=== PATIENT | female | born 1975 | race Caucasian/White ===

== ENCOUNTER 2022-02-05 14:22 | Outpatient (CLI) | payer OTHER, SELFPAY ==
--- NOTE | 2022-02-05 14:40 | CRLHL7_ITS ---
For Patients: As a result of the Century Cures Act, medical imaging exams and procedure reports are released immediately into your electronic medical record. You may view this report before your referring provider. If you have questions, please contact your health care provider. BILATERAL SCREENING MAMMOGRAM WITH COMPUTER-AIDED DETECTION AND TOMOSYNTHESIS TECHNIQUE: CC and MLO views were obtained. These mammographic images have been obtained using full-field digital technique. These mammographic images were interpreted with the benefit of computer-aided detection. Breast Tomosynthesis was used in this interpretation. COMPARISON FILM: Baseline. FINDINGS: There are scattered areas of fibroglandular density IMPRESSION: There is no radiographic evidence for malignancy. ASSESSMENT: BI-RADS Category 2: Benign RECOMMENDATION: Routine screening mammogram in 1 year. A lay language report of this examination will be provided to the patient. Odilon Castellano M.D. Diagnostic Radiologist [email or web address] Transcribed: 8:09 p.m. SLIME/Dictated by: Odilon Castellano MD @ 02/06/2022 11:47:00 AM (Electronically Signed)
== END 2022-02-05 14:23 | disposition home or self-care (01) ==
PROVIDERS: PCP Physician Assistant Medical; Visit Provider Physician Assistant Medical
DX: Z12.31 Encounter for screening mammogram for malignant neoplasm of breast (principal)
CPT/HCPCS: 77063; 77067

== ENCOUNTER 2022-11-12 09:30 | Outpatient (RCR) | payer OTHER, SELFPAY ==
--- NOTE | 2022-10-11 09:11 | PT.OPE ---
PT [place] Outpatient Eval [facility] Outpatient Eval Start: 10/08/22 07:49 Freq: Status: Active Protocol: Document 10/08/22 07:50 HN (Rec: 10/08/22 13:19 HN [id number]) E-signed By Bianca Robles DPT Physical Therapy Outpatient Evaluation Insurance Information Insurance Name [employer] Insurance Information/Comments [employer] Choice Medical Diagnosis Radiculopathy, cervical region , M54.12 Anesthesia of the skin R20. 0 Referring MD Randall Gatica MD Subjective Subjective Patient is a 47 year old female with left sided UE numbness and tingling with insidious onset, that worsened since June 2022. Patient reports it is intermittent during the day but consistent since June. Patient reports symptoms have worsened, received medrol pack relieved symptoms for a week but decreased once completed, Scheduled to receive steroid injection on Sunday 10/15 Pain characteristics: starts in neck and radiates down to arm to first three fingers, significant sharp pain in deltoid and elbow, sharp pain in cervical spine, left upper trapezius/levator Aggravating factors: bringing arm forward, lying on back, lying on R, writing, lifting arm overhead, lifting/carrying Easing Factors: ibuprofen, shower with heat, medrol pack helped during Prior level of function: independent and unlimited with all ADLs and IADLs Current limitations: turning head, writing, bringing arm in front, reaching down in front , Red flags: denies hx of cancer , recent infection, bowel/ bladder changes Imaging: MRI shows C6/C7 & C5 /C6 disc herniation PMH: unremarkable Social History: 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[employer], 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, 5 kids, enjoys boating, spending time with kids in the summer Pain Comments Current: 0/10 Best: 0/10 Worst: 5/10 at worst 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,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 Preferred Name Cinthia Princess Weight Bearing Status Full Weight Bearing Therapy Limitations/Systems Review Not Limited Objective Other/Pertinent Objective Posture: Shoulder range of motion: Flexion: WNL Abduction: WNL Cervical range of motion: Flexion 40 increased pain Extension: 52 Left rotation: 40 Right rotation: 32 increased numbness and tingling Manual muscle testing: Shoulder flexion: 5/5 L , 5/5 R Shoulder extension: 5/5 L , 5 /5 R Shoulder abduction: 5/5 L , 5 /5 R Shoulder external rotation: 5/ 5 L , 5/5 R Shoulder internal rotation: 5/ 5 L , 5/5 R Elbow flexion: 5/5 L , 5/5 R Elbow extension: 5/5 L , 5/5 R Plum Packer strength R 80 lbs , L 85 lbs Special tests: Spurlings: positive on on L Distraction: no change in symptosm ULNT1: no reproduction of symptoms ULNT2a: no reproduction of symptoms ULNT2b: no reproductions of symptoms Joint mobility: decreased cervical and thoracic mobility Palpation: increased numbness and tingling along left upper trap/levator scapulae Functional Test Performed & Score Neck disability index: deferred will assess next session Assessment Assessment/Impression Patient is a 47 year old with complaints of left sided numbness and tingling. Patient demonstrates impaired impaired cervical range of motion, increased numbness and tingling and pain consistent with cervical radiculopathy. These impairments impact the patients tolerance with turning head, lifting objects, writing, reaching arms in front, and performing ADLs and IADLs. Patient will benefit from skilled physical therapy to address the impairments and activity limitations listed above. Prognostic factors include no comorbidities and chronic nature of symptoms. Primary Functional Limitations tolerance with turning head, lifting objects, writing, reaching arms in front, and performing ADLs and IADLs. Plan of Care Rehabilitation Potential Good Physical Therapy Goals Short term goals ( 5 weeks, ) 1. Patient will report <4/10 pain at worst in order to demonstrate decreased pain and disability related to symptoms 2. Patient will report less than 10 instances of numbness and tingling in left arm during the day to demonstrates decreased pain and disability related to symptoms. FDC goals(10 weeks ) 1. Patient will demonstrate full pain-free cervical range of motion in order to complete ADLs and IADLs with no increase in pain. 2. Patient will demonstrate independence with HEP in order to manage symptoms independently at home. 3. Patient will report <3/10 pain at worst in order to demonstrate decreased pain and disability related to symptoms. 4. Patient will demonstrate 10 improvement in Neck Disability index in order to demonstrate decreased pain and disability related to neck and L UE arm/numbness 5. Patient will tolerate 75% of ADLs and IADLs with no increase in numbness/tingling in order to improve tolerance with daily activities. Coordination/Communication With Referral Source Treatment Plan/Direct Interventions Electrical Stimulation,Ice/ Cold/Vasopneumatic,Joint Mobilization,Manual Therapy, Neuromuscular Re-ed,Self-Care/ Home Management,Therapeutic Activities,Therapeutic Exercises,Traction (Mechanical ) Frequency/Duration 1-2x/week for 8-10 weeks Patient Will Be Discharged From Therapy Completion of LTG(s),Skills Plateau,Independent w/HEP Evaluation Billing Complexity Low Certification Information Physician Comment/Change : Physician NPI Number #
== END 2022-12-21 08:52 | disposition home or self-care (01) ==
PROVIDERS: PCP Physician Assistant Medical; Visit Provider Family Medicine
DX: M54.12 Radiculopathy, cervical region (principal); R20.0 Anesthesia of skin; Z51.89 Encounter for other specified aftercare
CPT/HCPCS: 97012; 97110; 97140; 97161

== ENCOUNTER 2024-04-23 13:50 | Outpatient (CLI) | payer OTHER, SELFPAY ==
[2024-04-26 03:17] LABS: HPV Source Cervix; HPV, High Risk by TMA Not Detected
== END 2024-04-23 13:51 | disposition home or self-care (01) ==
PROVIDERS: PCP Physician Assistant Medical; Visit Provider Physician Assistant Medical
DX: Z11.3 Encounter for screening for infections with a predominantly sexual mode of transmission (principal); Z12.4 Encounter for screening for malignant neoplasm of cervix; Z11.51 Encounter for screening for human papillomavirus (HPV)
CPT/HCPCS: 87491; 87591; 87624; 87625; 88141; 88142

== ENCOUNTER 2024-04-24 09:48 | Outpatient (CLI) | payer OTHER, SELFPAY | END 2024-04-24 09:49 | disposition home or self-care (01) | LOC: NFLDREF 04-28 23:58 | PROVIDERS: PCP Physician Assistant Medical; Referring Provider Physician Assistant Medical; Visit Provider Physician Assistant Medical | DX: R82.90 Unspecified abnormal findings in urine (principal); Z13.6 Encounter for screening for cardiovascular disorders; Z13.29 Encounter for screening for other suspected endocrine disorder; Z13.1 Encounter for screening for diabetes mellitus; Z11.3 Encounter for screening for infections with a predominantly sexual mode of transmission | CPT/HCPCS: 80048; 80061; 84443; 87086 ==

== ENCOUNTER 2024-05-28 12:34 | Emergency (ER) | payer OTHER, SELFPAY ==
[2024-05-28] VITALS (18 sets, daily range): BP systolic 164; BP diastolic 93; PULSE 84–104; RESP 13–32; O2SAT 95–100; BMI 40.4
--- OUTSIDE RECORDS SUMMARY | 2024-05-28 12:36 | XMS_ITS | Continuity of Care Document ---
Author Organization [facility] Address [address] [place] [address] Phone Care Team Providers Care Tapering Machine Operator Name Role Phone Temitope ROCA, PhD, Braulio Unavailable Unavai lable Allergies, Adverse Reactions, Alerts Substance Reaction Status Criticality No Known Allergies Active No Inform ation Medications Medication Instructions Dosage Effective Dates (start - stop) Status Comments No Drug Therapy Prescribed Procedures Procedure Date OFFICE/OUTPATIENT VISIT EST Phone Office/Outpatient Visit,[facility], [facility] 2022 Advance Directives Directive Yes / No Effective Date File Name No Information Encounters Encounter Description Practice Location Reason(s) For Visit Diagnoses Date Provider Providers Copied on Encounter OFFICE/OUTPAT IENT VISIT EST Phone [facility], [address], [place], [place], [id number], [place] tel:[phone] [facility] No Information Temitope Ramsey. [facility], [address] [address], [place], [address], [place]. tel:[phone] Referring Provider: Randall Layne, [facility] [address] [facility], [place], [address]. tel:[phone] Office/Outpat ient Visit,[facility], [facility], [address], [place], [place], [id number], [place] tel:[phone] [facility] Spinal stenosis, cervical region Temitope Ramsey. [facility], [address], [place], [address], [place]. tel:[phone] Referring Provider: Randall Layne, [facility] [address] [place], [address]. tel:[phone] Family History Family Member Type Diagnosis Age At Onset No Information Payers Payer name Insurance type Covered constitution party ID Authoriza tiduncan(s) [employer] [id number] Social History Type Description Quantity Date Captured Comments Sex Female Smoking Status No Information Chief Complaint And Reason For Visit No Information Reason For Referral Reason For Referral No Information History Of Present Illness Encounter Date Complaint History Of Prese nt Illness No Information Functional Status Date Functional Assessmen t No Information Medications Administered Medication Instructions Dosage Effective Dates (start - stop) Status Comments No Drug Therapy Prescribed Instructions Date Instruction Additional Infor mation No Information Assessments Type Assessment Date No Information Patient Care Teams Name Effective Dates (start - stop) Status Members No Information
--- OUTSIDE RECORDS SUMMARY | 2024-05-28 12:36 | XMS_ITS | Clinical Summary ---
Author Organization [facility] Address [facility] [place] [address] Care Team Providers Care General Pediatrician Name Role Phone Tiana Vazquez MD Unavailable [phone] Clinic, No Pcp Or Primary Care Provider Unavaila ble Allergies No known active allergies Medications vitamin-folic acid 1 mg ( RX) tablet/capsuleI ndications:Post state Take 1 tablet by mouth once daily. 100 tablet 0 6 Active docusate (COLACE) 100 mg capsuleIndicati ons: delivery delivered Take 1 capsule by mouth once daily. 100 capsule 0 6 Active oxyCODONE (ROXICODONE) 5 mg immediate release tabletIndicatio ns:Post-op pain Take 1 tablet by mouth every 4 hours if needed for moderate to severe pain not controlled with ibuprofen and acetaminophen. 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 06/24/2018 AMA (advanced maternal age) multigravida 35+, second trimester 06/24/2018 delivery delivered 09/11/2015 Post-op pain 09/11/2015 state 09/11/2015 Immunizations Name Administration Dates Next Due Td (Age >=7 Years) 04/15/2002 Tdap, Unspecified 06/28/2015 Tuberculin (PPD) 08/15/2000 Family History Medical History Relation Name Comments Cancer Brother Hyperlipidemia Father Hypertension Father Relation Name Status Comments Brother Father Social History Tobacco Use Types Packs/Day Years Used Date Smoking Tobacco: Never Smokeless Tobacco: Never Alcohol Use Standard Drinks/Week Comments No 0 (1 standard drink = 0.6 oz pur e alcohol) Comments No Sex and Gender Information Value Date Recorded Sex Assigned at Not on file Legal Sex Female 5:31 AM TELLER COORDINATOR Gender Identity Not on file Sexual Orientation Not on file Obstetrics History Para Term AB IAB SAB Ectopic Multiple Livin g Live Births 6 5 5 0 1 0 0 0 0 5 4 Date Outcome GA Total Labor Labor//3rd Weight Sex Type Anes PTL Christina A1 A5 Name Clin AB 2010 Term M C-Sec tion Spinal Y Livin g 2011 Term M C-Sec tion Spinal Livin g 2013 Term C-Sec tion Spinal Livin g 2015 Term 39w 1d 3.43 kg (7 lb 9 oz) F C-Sec tion Livin g 9 9 Delivery Location:[facility] 2018 Term 39w 3d 0h 01m 4.41 kg (9 lb 11.6 oz) F CS-LT ranv Spinal 8 9 GROSSM AN,BG CINTHIA Delivery Location:[facility] (UTD 2000 MB L&D TRIAGE) Last Filed Vital Signs Vital Sign Reading Time Taken Comments Blood Pressure 127/74 11/02/2018 8:02 AM CDT Pulse 81 11/02/2018 8:02 AM CDT Temperature 36.7 C (98 F) 11/02/2018 8:02 AM CDT Respiratory Rate 16 11/02/2018 8:02 AM CDT Oxygen Saturation 98% 11/02/2018 8:02 AM CDT Inhaled Oxygen Concentration - - Weight 96.6 kg (213 lb) 10/30/2018 5:39 AM CDT Height 167.6 cm (5' 6) 10/30/2018 5:39 AM CDT Body Mass Index 34.38 10/30/2018 5:39 AM CDT Plan of Treatment Health Maintenance Due Date Last Done Comments Depression screening for age 12+ 1989 HIV for age 15-65 1992 BMI (ht and wt on same day) for age 18+ 09/16/1995 Hepatitis C screening for ag e 18-79 09/16/1995 Pap test for age 21-65 03/21/2019 6, 06/21/2004 Colonoscopy through age 75 2022 Lipids for age 45-75 2022 06/21/2004 Mammogram for age 45-75 2022 COVID-19 vaccine series (2023- season) 2023 Influenza for age 9-49 11/24/2023 Tetanus booster 06/27/2025 06/28/2015, 04/15/2002 Tdap Completed 06/28/2015 Pneumococcal series for age 6-49 Aged Out No longer eligible b ased on patient's age to complete this topic Procedures Procedure Name Priority Date/Time Associated Diagnosis Comments TRANSFORMER REPAIRER THIN PREP PAP SCREEN IMAGED Routine 03/21/2016 1:30 PM TELLER COORDINATOR LIPID PANEL Timed 06/21/2004 12:28 PM TELLER COORDINATOR from Last 3 Months or Most Recently Relevant to Health Maintenance Results * TRANSFORMER REPAIRER THIN PREP PAP SCREEN IMAGED (03/21/2016 1:30 PM TELLER COORDINATOR) Case Report Gynecologic Cytology Report Case: [id number] Authorizing Provider: Roxanne Lazaro Collected: 03/21/2016 1330 First Screen: Lopez Morton Received: 03/23/2016 1340 Specimen: TRANSFORMER REPAIRER ThinPrep Vial Screening, Cervical/Vaginal 03/31/2016 9:07 AM TELLER COORDINATOR [facility] INTERPRETATION/ RESULT NEGATIVE FOR INTRAEPITHELIAL LESION OR MALIGNANCY (NIL) (none) 03/31/2016 9:07 AM TELLER COORDINATOR [facility] IMEN ADEQUACY Satisfactory for evaluation No endocervical component seen 03/31/2016 9:07 AM TELLER COORDINATOR [facility] HPV REQUEST HPV if ASCUS 03/31/2016 9:07 AM TELLER COORDINATOR [facility] Date of LMP 03/31/2016 9:07 AM TELLER COORDINATOR [facility] Comment:unknown Last Pap Date 03/31/2016 9:07 AM TELLER COORDINATOR [facility] Comment:unknown Menstrual Status 03/31/2016 9:07 AM [facility] Automated Review Successful 03/31/2016 9:07 AM [facility] Comment:Specimen processed s uccessfully by automated clinical genetics laboratory chief device, ThinPrep Imaging System, [email or web address] Note The pap test is a screening technique, not a diagnostic procedure. It is used primarily to screen for squamous cancers and precursor lesions. Published studies have shown that it is subject to both false negative and false positive results. The pap test should not be used as the sole means to diagnose or exclude pre-malignant and malignant lesions. Interpreted at [facility] ([facility], [facility], [facility], [facility], [facility], [facility], [facility]) 03/31/2016 9:07 AM [facility] Other (Cervical/Vagina l) 03/21/2016 1:30 PM TELLER COORDINATOR 03/23/2016 1:40 PM TELLER COORDINATOR Roxanne Lazaro PATHOLOGY/CYTOLOGY Final Result [facility] [address] [place] [address], * (ABNORMAL) LIPID PANEL (06/21/2004 12:28 PM TELLER COORDINATOR) CHOLESTEROL,TOTAL 150 110 - 199 mg/dL [facility] TRIGLYCERIDES 33(L) 40 - 149 mg/dL [facility] HDL CHOLESTEROL 50 41 - 95 mg/dL [facility] CHOL/HDL RATIO 3.00 <4.51 [facility] LDL CHOLESTEROL 93 60 - 130 mg/dL [facility] PATIENT STATUS Fasting [facility] 06/21/2004 12:2 8 PM TELLER COORDINATOR 06/21/2004 8:10 PM TELLER COORDINATOR Cecilia Colorado MD CHEMISTRY Final Result [facility] [place] ZIP [id number] [address] from Last 3 Months or Most Recently Relevant to Health [place] [address] [employer] Advance Directives * Full Code (Latest Code Status on File) Date Activated Date Inactivated Comments 10/30/2018 5:37 AM 11/02/2018 3:15 PM * Full Code Date Activated Date Inactivated Comments 09/08/2015 9:48 AM 09/11/2015 3:08 PM * Full Code Date Activated Date Inactivated Comments 09/08/2015 7:00 AM 09/08/2015 9:48 AM Care Teams General Pediatrician Relationship Specialty Start Date End Date Clinic, No Pcp Or . PCP - General 04/15/18 [place] [address] [place] [address] Obstetrics and Gynecology 01/22/13
--- OUTSIDE RECORDS SUMMARY | 2024-05-28 12:36 | XMS_ITS | Clinical Summary ---
Author Organization [facility] Address [address] [place] [address] Care Team Providers Care Victim Advocate Name Role Phone Lorrie Curry MD Primary Care Provider [phone] Allergies No known active allergies Medications ALBUTEROL 90 MCG/ACT IN AERS INHALE 1 TO 2 PUFFS EVERY 4 TO 6 HOURS NEEDED 1 1 7 Active ALBUTEROL SULFATE (2.5 MG/3ML) 0.083% IN NEBU None Entered Active ALBUTEROL SULFATE (2.5 MG/3ML) 0.083% [facility] :Intermittent asthma ONE NEBULIZATION 4 TIMES DAILY NEEDED 1 BOX 0 9 Active Vit-DSS-Fe Fum-FA ( 19) TABS Take 1 tablet by mouth daily. Active cholecalciferol (VITAMIN D) 400 UNIT TABS Take 400 Units by mouth daily. Active amoxicillin (AMOXIL) 875 MG tabletIndicatio ns:Throat pain Take 1 tablet (875 mg) by mouth 2 times daily 20 tablet 8 Active valACYclovir (VALTREX) 500 MG tabletIndicatio ns:Cold sore Take 1 tablet (500 mg) by mouth 3 times daily 6 tablet 3 8 Active magic mouthwash (FIRST-MOUTHWAS H BLM) suspensionIndic ations:Throat pain Swish and swallow 5-10 mLs in mouth every 6 hours as needed for mouth sores 237 mL 1 8 Active Active Problems Problem Noted Date Diagnosed Date Asthma Overview (09/06/2020): Created by Conversion Herpes Simplex Type I Overview (09/23/2020): Created by Conversion Replacement Utility updated for latest IMO load Immunizations Name Administration Dates Next Due HepB, Unspecified 12/18/2005,11/12/2005,06/18/19 06 Influenza Vaccine, 6+MO IM ( QUADRIVALENT W/PRESERVATIVES) 02/29/2012 MMR 11/28/2005 Social History Tobacco Use Types Packs/Day Years Used Date Smoking Tobacco: Never Smokeless Tobacco: Never Alcohol Use Standard Drinks/Week Comments Not Asked 0 (1 standard drink = 0.6 oz pur e alcohol) Comments No Sex and Gender Information Value Date Recorded Sex Assigned at Not on file Legal Sex Female 3:35 AM AGITATOR OPERATOR Gender Identity Not on file Sexual Orientation Not on file Last Filed Vital Signs Vital Sign Reading Time Taken Comments Blood Pressure 122/80 02/09/2018 8:38 AM AGITATOR OPERATOR Pulse 106 02/09/2018 8:38 AM AGITATOR OPERATOR Temperature 37.1 C (98.8 F) 02/09/2018 8:38 AM AGITATOR OPERATOR Respiratory Rate 16 09/30/2007 2:00 PM CDT Oxygen Saturation 98% 02/09/2018 8:38 AM AGITATOR OPERATOR Inhaled Oxygen Concentration - - Weight 85.9 kg (189 lb 4.8 oz) 07/14/2010 10:41 AM CDT Height 167.6 cm (5' 6) 09/10/2006 11:15 AM CDT Body Mass Index 30.55 09/10/2006 11:15 AM CDT Plan of Treatment Not on file Insurance [employer] [place] [address] [id number] Care Teams Victim Advocate Relationship Specialty Start Date End Date Lorrie Curry MD PCP - General 08/17/11
--- NOTE | 2024-05-28 12:48 | CRLHL7_ITS ---
For Patients: As a result of the Century Cures Act, medical imaging exams and procedure reports are released immediately into your electronic medical record. You may view this report before your referring provider. If you have questions, please contact your health care provider. Indication: Epiglottitis, difficulty swallowing and speaking Technique: Volumetric multidetector CT images of the cervical soft tissues were obtained after the administration of low osmolar intravenous contrast. 120 cc Isovue 370 low osmolar intravenous contrast Comparison: None available. Findings: The partially visualized brain parenchyma is normal in attenuation without evidence of abnormal enhancement. The orbits and their contents are within normal limits. The paranasal sinuses are clear. The mastoid air cells are clear. The nasopharynx is unremarkable. The fossae of Rosenmuller are clear. The oropharynx is unremarkable. There is mild thickening of the left aryepiglottic fold. The epiglottis is otherwise grossly within normal limits. There is minimal effacement of the left piriform sinus. The deep spaces of the neck are otherwise preserved. The vocal folds are nonthickened with symmetrical appearance. The thyroid gland is normal in attenuation. There is no evidence of pathologically enlarged cervical lymph node. There is questionable mild narrowing of the subglottic airway with minimal nodular appearance of the proximal right trachea seen best on series 3, image 47. The jugular veins are patent. The carotid arteries demonstrate no significant atherosclerotic narrowing. The lung apices are clear. There is mild reversal of the normal cervical lordosis without evidence of significant spondylolisthesis or displaced fracture. Impression: 1. Somewhat nonspecific questionable thickening of the gwxa-prikjwt-wywv-right aryepiglottic fold and effacement of the left piriform sinus which may represent minimal pharyngitis change. The epiglottis is not thickened without definite evidence of epiglottitis. 2. Incidental note made of somewhat nodular thickening and narrowing of the subglottic trachea along the right lateral tracheal wall. Correlate with history of prior intubation and/or injury. This finding is best appreciated on series 3, image 47. 3. Otherwise, no acute abnormalities of the cervical soft tissues. Please note that all CT scans at this facility use dose modulation, iterative reconstruction, and/or weight-based dosing when appropriate to reduce radiation dose to as low as reasonably achievable. Dictated by Luis Garcias MD @ 05/28/2024 1:34:34 PM (Electronically Signed)
--- NOTE | 2024-05-28 12:54 | ED.GENADULT ---
HPI - General Adult General Time Seen by Provider: 12:54 Date Seen: 05/28/24 Chief complaint: Shortness of Breath/Dyspnea Stated complaint: difficulty breathing/speaking Time Seen by Provider: 05/28/24 12:39 Source: patient Mode of arrival: ambulatory Limitations: no limitations History of Present Illness HPI narrative: Cinthia is a 48-year-old female with past medical history of anemia presents emerged department via private car and family with sore throat. Persisting she does have sick kids at home, around four days ago the patient developed headache and sweats, a day or 2 later she developed sore throat, she also lost her voice yesterday.. This morning she awakened and she felt that she could not breathe, she feels the constriction in her throat, she does have history of asthma but does not feel that it is in her lungs. Patient was seen in clinic this morning, imaging was negative, he was given 10 mg oral Decadron. Sent over here for further evaluation. Patient denies any chest pain. She is up-to-date on immunizations. Related Data Home Medications ?Medication ?Instructions ?Recorded ?Confirmed No Known Home Medications 05/28/24 05/28/24 Allergies Allergy/AdvReac Type Severity Reaction Status Date / Time No Known Drug Allergies Allergy Unverified 05/28/24 10:35 [facility] Medical History (Updated 05/28/24 @ 15:13 by Arsalan Sandy MD) Sore throat ?J02.9 - Acute pharyngitis, unspecified (ICD-10) History of miscarriage ?Z87.59 - Personal history of other complications of , childbirth and the puerperium (ICD-10) Surgical History (Updated 09/05/22 @ 13:33 by Cornell Linares) Status post delivery ?Z98.891 - History of uterine scar from previous surgery (ICD-10) Family History (Updated 04/23/24 @ 14:01 by Cinthia Lombardo PA-C) Father Coronary artery disease, Onset Age: 40 Brother Leukemia Social History (Updated 04/23/24 @ 15:02 by Lexus BAEZA) Narrative: . 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, [employer] Education: Bachelor's degree Alcohol use: Yes denies recreational drug use Never smoker Exercise: No specific routine What is your current living situation?: declined to answer Problems where you live: declined to answer In the past 12 months, utilities in danger of being shut off: declined to answer In past 12 months, lack of transportation kept you from medical appts, meetings, work, or getting things needed for daily living: declined to answer In the past 12 mos, have been you worried that your food would run out before you had money to buy more?: declined to answer In the past 12 mos, the food you bought just didn't last and you didn't have money to buy more?: declined to answer Smoking Status: Never smoker How often does anyone, including family, friends and others, physically hurt you: decline to answer How often does anyone, including family, friends and others, insult or talk down to you: decline to answer How often does anyone, including family, friends and others, threaten you with harm: decline to answer How often does anyone, including family, friends and others, scream or curse at you: decline to answer Health Related Social Needs: unsheltered homelessness (Z59.02) Exam Narrative: Exam Narrative: General: mild distress, speaking in full sentences. HEENT: Oropharynx is clear and moist, uvula is midline, appreciable peritonsillar abscess. Neck: Use of accessory muscles, supple, no adenopathy Lungs: tachypnea, no stridor or wheezing. no retractions. Heart: NSR, S1S2 Abdomen: soft, non tender. no accessory muscle breathing. Neuro: AA0X3, GCS 15 Const: Vital Signs, click to edit/add: Vital Signs - 24 hr 05/28/24 12:40 05/28/24 12:43 05/28/24 12:43 Pulse Rate 87 88 Pulse Rate [Pulse Oximeter] 93 Respiratory Rate 32 H 20 Blood Pressure 164/93 H Blood Pressure [Ri ght Upper Arm] 164/93 H Pulse Oximetry 100 100 100 Oxygen Delivery Me thod Room Air 05/28/24 12:45 05/28/24 13:00 05/28/24 13:22 Pulse Rate 86 84 91 Pulse Rate [Pulse Oximeter] Respiratory Rate 20 15 Blood Pressure Blood Pressure [Ri ght Upper Arm] Pulse Oximetry 100 100 100 Oxygen Delivery Me thod 05/28/24 13:30 05/28/24 13:45 05/28/24 14:00 Pulse Rate 88 89 96 Pulse Rate [Pulse Oximeter] Respiratory Rate 14 22 Blood Pressure Blood Pressure [Ri ght Upper Arm] Pulse Oximetry 97 98 98 Oxygen Delivery Me thod 05/28/24 14:15 05/28/24 14:30 05/28/24 14:45 Pulse Rate 97 95 94 Pulse Rate [Pulse Oximeter] Respiratory Rate 16 Blood Pressure Blood Pressure [Ri ght Upper Arm] Pulse Oximetry 95 95 96 Oxygen Delivery Me thod 05/28/24 15:00 05/28/24 15:15 05/28/24 15:30 Pulse Rate 99 94 104 H Pulse Rate [Pulse Oximeter] Respiratory Rate Blood Pressure Blood Pressure [Ri ght Upper Arm] Pulse Oximetry 96 95 97 Oxygen Delivery Me thod Course Course ED Course: 1:30 PM: aidet performed. vitals are stable at this time. Workup include IV peripheral, cbc, cmp. blood culture and lactate, vbg, CRP, ESR, with SARs test influenza test RSV nasopharyngeal swab, patient already got decadron 10 mg in clinic, she also did a nebulizer albuterol at home. May consider racemic epinephrine. Obtain CT soft tissue neck with IV contrast. Differential includes peritonsillar abscess, retropharyngeal abscess, epiglottitis, tracheitis, pharyngitis, viral upper respiratory illness, allergic rhinitis, foreign body aspiration. Reevaluation(s) Time of Reevaluation #1: 13:11 Reevaluation #1: patient to go for CT soft tissue neck, rule out epiglottitis. patient continues to have normal vitals. Impression: 1. Somewhat nonspecific questionable thickening of the [id number]-right aryepiglottic fold and effacement of the left piriform sinus which may represent minimal pharyngitis change. The epiglottis is not thickened without definite evidence of epiglottitis. 2. Incidental note made of somewhat nodular thickening and narrowing of the subglottic trachea along the right lateral tracheal wall. Correlate with history of prior intubation and/or injury. This finding is best appreciated on series 3, image 47. 3. Otherwise, no acute abnormalities of the cervical soft tissues. The patient was placed on humidified air and doing well, symptoms have improved, Patient feeling better after above care given, CBC showed no leukocytosis, chronic anemia, lactate within normal limits, VBG showed normal pH and pCO2, blood cultures pending, COVID influenza-RSV negative, rapid strep negative, was able to talk to ENT Dr. Brown, recommendations were to try a receiving epinephrine nebulizer, coverage with Unasyn 3 g, try and swing by the emergency department to further evaluate. Time of Reevaluation #2: 15:49 Reevaluation #2: Patient is still doing well. Was able speak Dr. Brown once again, he will come over from clinic to evaluate the patient and perform Nasopharyngeal scope. Due to shift change transfer of care was given to Dr. Bellamy pending ENT evaluation. Please see his note for final disposition and plan. Vital Signs Vital signs: Initial Vital Signs Pulse Rate 87 05/28/24 12:40 Pulse Oximetry 100 05/28/24 12:40 Vital Signs Pulse Rate 87 05/28/24 12:40 Pulse Oximetry 100 05/28/24 12:40 Pulse Rate 104 H 05/28/24 15:30 Respiratory Rate 16 05/28/24 14:15 Blood Pressure 164/93 H 05/28/24 12:43 Pulse Oximetry 97 05/28/24 15:30 Oxygen Delivery Method Room Air 05/28/24 12:43 Medications Administered Medications: Discontinued Medications Generic Name Dose Route Start Last Admin Trade Name Freq PRN Reason Stop Dose Admin Epinephrine 0.5 ml 05/28/24 13:42 05/28/24 13:49 Racepinephrine Hcl 0.5 Ml Vial.Neb NEB 05/28/24 13:43 0.5 ml ONCE ONE Administration Ampicillin Sodium/Sulbactam 100 mls @ 200 mls/hr 05/28/24 13:42 05/28/24 14:35 Sodium 3 gm/ Sodium Chloride IVPB 05/28/24 13:43 Infused ONCE ONE Infusion Medical Decision Making Lab Data Labs: Lab Results 05/28/24 05/28/24 Range/Units 12:55 12:55 WBC 8.50 (4.50-11.00) K/uL RBC 4.24 (4.00-5.20) m/uL Hgb 10.2 L (12.0-16.0) gm/dL Hct 32.5 L (33.0-51.0) % MCV 77 L (80-100) fL MCH 24 L (26-34) pg MCHC 31 L (32-36) gm/dL RDW Coeff of Vicente 16.5 H (11.5-15.5) % Plt Count 429 (140-440) K/uL Neut % (Auto) 78.7 H (42.0-72.0) % Lymph % (Auto) 16.2 L (20-44) % [place] % (Auto) 3.6 (0.0-11.0) % Eos % (Auto) 1.2 (0.0-7.0) % Baso % (Auto) 0.1 (0.0-3.0) % Neut # (Auto) 6.70 (1.7-7.0) K/uL Lymph # (Auto) 1.40 (0.90-2.90) K/uL [place] # (Auto) 0.30 (0.00-0.90) K/UL Eos # (Auto) 0.10 (0.00-0.50) K/uL Baso # (Auto) 0.01 (0.00-0.30) K/uL Abs Immat Gran (auto) 0.02 (0.00-0.30) K/uL Imm/Tot Granulo (auto) 0.2 % ESR 11 (2-20) mm/hr VBG pH 7.355 (7.32-7.43) VBG pCO2 41 (40-50) mmHG VBG pO2 30.1 (25-47) mmHG VBG HCO3 23 (21-28) mmol/L Sodium 137 (135-149) mmol/L Potassium 3.9 (3.6-5.1) mmol/L Chloride 105 (96-114) mmol/L Carbon Dioxide 21 (20-32) mmol/L Anion Gap 11 (7-15) mEq/L BUN 11 (5-24) mg/dL Creatinine 0.6 (0.5-1.5) mg/dL Estimated Creat Clear 109.68 Estimated GFR 112 ml/min Glucose 92 (60-115) mg/dL Lactate 1.6 (0.5-1.9) mmol/L Calcium 8.7 (8.4-10.6) mg/dL C-Reactive Protein 0.9 (0.5-1.0) mg/dL SARS-CoV-2 (PCR) Cancelled Negative SARS-CoV-2 Influenza Type A (PCR) Negative PCR FLU A (Negative) Influenza Type B (PCR) Negative PCR FLU B (Negative) RSV (PCR) Negative PCR RSV (Negative) Group A Strep DNA NOT DETECTED (Not Detectd) Critical Care Time Critical Care Time Critical Care Time: Yes Attestation: The patient required my highest level preparedness to intervene emergently and I personally spent this critical care time directly and personally managing the patient. This critical care time included: Obtaining a history; Examining the patient; Pulse oximetry; Ordering and reviewing of studies; Arranging urgent treatment with development of a management plan; Evaluation of patients response to treatment; Frequent reassessment discussions with other providers. This critical care time was performed to assess and manage the high probability of imminent life-threatening deterioration that could result in multiorgan failure. It was exclusive of separate billable procedures and treating other patients and teaching time. Total Critical Care Time in Minutes: 30 Discharge Plan Discharge Clinical Impression: Subglottic stenosis Patient Disposition: Home, Self-Care Condition: Improved Prescriptions: No Action No Known Home Medications Follow Up/Referrals: Cinthia Lombardo PA-C [Primary Care Provider] - Stand Alone Forms: Acsis Info Instructions
[2024-05-28 13:09] LABS: Lactate* 1.6 mmol/L (0.5-1.9)
[2024-05-28 13:10] LABS: Basophils Absolute Auto 0.01 K/uL (0.00-0.30); Basophils Percent Auto 0.1 % (0.0-3.0); Eosinophils Percent Auto 1.2 % (0.0-7.0); Hematocrit 32.5 % (33.0-51.0); Hemoglobin* 10.2 gm/dL (12.0-16.0); Immature Granulocytes Abs Auto 0.02 K/uL (0.00-0.30); Immature Granulocytes Pct Auto 0.2 %; Lymphocytes Percent Auto 16.2 % (20-44); Mean Corpuscular HGB Conc 31 gm/dL (32-36); Mean Corpuscular Hemoglobin 24 pg (26-34); Mean Corpuscular Volume 77 fL (80-100); Monocytes Percent Auto 3.6 % (0.0-11.0); Neutrophils Percent Auto 78.7 % (42.0-72.0); Platelet Count* 429 K/uL (140-440); RDW Coefficient of Variation % 16.5 % (11.5-15.5); Red Blood Count 4.24 m/uL (4.00-5.20); Slide Review Reflex No
[2024-05-28 13:11] LABS: PCO2 VBG 41 mmHG (40-50); pH VBG 7.355 (7.32-7.43)
[2024-05-28 13:12] LABS: HCO3 VBG 23 mmol/L (21-28); PO2 VBG 30.1 mmHG (25-47)
[2024-05-28 13:25] LABS: Chloride* 105 mmol/L (96-114); Sodium* 137 mmol/L (135-149)
[2024-05-28 13:26] LABS: Potassium* 3.9 mmol/L (3.6-5.1)
[2024-05-28 13:29] LABS: Anion Gap 11 mEq/L (7-15); Blood Urea Nitrogen* 11 mg/dL (5-24); Calcium* 8.7 mg/dL (8.4-10.6); Carbon Dioxide* 21 mmol/L (20-32); Creatinine* 0.6 mg/dL (0.5-1.5); Est. Creatinine Clearance* 109.68; Estimated Glomerular Filt Rate 112 ml/min; Glucose* 92 mg/dL (60-115)
--- OUTSIDE RECORDS SUMMARY | 2024-05-28 13:36 | XMS_ITS | Continuity of Care Document ---
Author Organization [facility] Address [address] [place] [address] Phone Care Team Providers Care Nat Instructor Name Role Phone Temitope ROCA, PhD, Braulio Unavailable Unavai lable Allergies, Adverse Reactions, Alerts Substance Reaction Status Criticality No Known Allergies Active No Inform ation Medications Medication Instructions Dosage Effective Dates (start - stop) Status Comments No Drug Therapy Prescribed Procedures Procedure Date OFFICE/OUTPATIENT VISIT EST Phone Office/Outpatient Visit,[facility], [facility] 2022 Advance Directives Directive Yes / No Effective Date File Name No Information Encounters Encounter Description Practice Location Reason(s) For Visit Diagnoses Date Provider Providers Copied on Encounter OFFICE/OUTPAT IENT VISIT EST Phone [facility], [address], [place], [place], [id number], [place] tel:[phone] [facility] No Information Temitope Ramsey. [facility] [place], [address] [address], [place], [address], [place]. tel:[phone] Referring Provider: Randall Layne, [facility] [address] [facility], [place], [address]. tel:[phone] Office/Outpat ient Visit,[facility], [facility], [address], [place], [place], [id number], [place] tel:[phone] [facility] Spinal stenosis, cervical region Temitope Ramsey. [facility], [address], [place], [address], [place]. tel:[phone] Referring Provider: Randall Layne, [facility] [address] [place], [address]. tel:[phone] Family History Family Member Type Diagnosis Age At Onset No Information Payers Payer name Insurance type Covered democrat ID Authoriza tiduncan(s) [employer] [id number] Social History Type Description Quantity Date Captured [...]
--- OUTSIDE RECORDS SUMMARY | 2024-05-28 13:36 | XMS_ITS | Clinical Summary ---
Author Organization [facility] Address [address] [place] [id number] Care Team Providers Care Abatement Worker Name Role Phone Lorrie Curry MD Primary Care Provider [phone] Allergies No known active allergies Medications ALBUTEROL [...] on file Legal Sex Female 3:35 AM TRANSFER CONTROLLER Gender Identity Not on file Sexual Orientation Not on file Last Filed Vital Signs Vital Sign Reading Time Taken Comments Blood Pressure 122/80 02/09/2018 8:38 AM TRANSFER CONTROLLER Pulse 106 02/09/2018 8:38 AM TRANSFER CONTROLLER Temperature 37.1 C (98.8 F) 02/09/2018 8:38 AM TRANSFER CONTROLLER Respiratory Rate 16 09/30/2007 2:00 PM CDT Oxygen Saturation 98% 02/09/2018 8:38 AM TRANSFER CONTROLLER Inhaled Oxygen Concentration - - Weight 85.9 kg (189 lb 4.8 oz) 07/14/2010 10:41 AM CDT Height 167.6 cm (5' 6) 09/10/2006 11:15 AM CDT Body Mass Index 30.55 09/10/2006 11:15 AM CDT Plan of Treatment Not on file Insurance [employer] Care Teams Abatement Worker Relationship Specialty Start Date End Date Lorrie Curry MD PCP - General 08/17/11
--- OUTSIDE RECORDS SUMMARY | 2024-05-28 13:36 | XMS_ITS | Clinical Summary ---
Author Organization [facility] Address [facility] [place] [address] Care Team Providers Care Shipping Associate Name Role Phone Tiana Vazquez MD Unavailable [phone] Clinic, No Pcp Or Primary Care Provider [...] on file Legal Sex Female 5:31 AM EQUAL OPPORTUNITY COUNSELOR Gender Identity Not on file Sexual Orientation [...] C-Sec tion Livin g 9 9 Delivery Location:[facility] 2018 Term 39w 3d 0h 01m 4.41 kg (9 lb 11.6 oz) F CS-LT ranv Spinal 8 9 GROSSM AN,BG CINTHIA Delivery Location:[facility] (UTD 2000 MB L&D TRIAGE) Last Filed [...] Procedure Name Priority Date/Time Associated Diagnosis Comments DATA STORAGE SPECIALIST THIN PREP PAP SCREEN IMAGED Routine 03/21/2016 1:30 PM EQUAL OPPORTUNITY COUNSELOR LIPID PANEL Timed 06/21/2004 12:28 PM EQUAL OPPORTUNITY COUNSELOR from Last 3 Months or Most Recently Relevant to Health Maintenance Results * DATA STORAGE SPECIALIST THIN PREP PAP SCREEN IMAGED (03/21/2016 1:30 PM EQUAL OPPORTUNITY COUNSELOR) Case Report Gynecologic Cytology Report Case: [id number] Authorizing Provider: Roxanne Lazaro Collected: 03/21/2016 1330 First Screen: Lopez Morton Received: 03/23/2016 1340 Specimen: DATA STORAGE SPECIALIST ThinPrep Vial Screening, Cervical/Vaginal 03/31/2016 9:07 AM EQUAL OPPORTUNITY COUNSELOR [facility] INTERPRETATION/ RESULT NEGATIVE FOR INTRAEPITHELIAL LESION OR MALIGNANCY (NIL) (none) 03/31/2016 9:07 AM EQUAL OPPORTUNITY COUNSELOR [facility] IMEN ADEQUACY Satisfactory for evaluation No endocervical component seen 03/31/2016 9:07 AM EQUAL OPPORTUNITY COUNSELOR [facility] HPV REQUEST HPV if ASCUS 03/31/2016 9:07 AM EQUAL OPPORTUNITY COUNSELOR [facility] Date of LMP 03/31/2016 9:07 AM EQUAL OPPORTUNITY COUNSELOR [facility] Comment:unknown Last Pap Date 03/31/2016 9:07 AM EQUAL OPPORTUNITY COUNSELOR [facility] Comment:unknown Menstrual Status 03/31/2016 9:07 AM [facility] Automated Review Successful 03/31/2016 9:07 AM [facility] Comment:Specimen processed s uccessfully by automated marine reporter device, ThinPrep Imaging System, [employer] Note The pap test is a screening technique, not a diagnostic procedure. It is used primarily to screen for squamous cancers and precursor lesions. Published studies have shown that it is subject to both false negative and false positive results. The pap test should not be used as the sole means to diagnose or exclude pre-malignant and malignant lesions. Interpreted at [facility] (Central Lab, [facility], [facility], [facility], [facility], [facility], [facility]) 03/31/2016 9:07 AM [facility] Other (Cervical/Vagina l) 03/21/2016 1:30 PM EQUAL OPPORTUNITY COUNSELOR 03/23/2016 1:40 PM EQUAL OPPORTUNITY COUNSELOR Roxanne Lazaro PATHOLOGY/CYTOLOGY Final Result [facility] [address] [place] [address], * (ABNORMAL) LIPID PANEL (06/21/2004 12:28 PM EQUAL OPPORTUNITY COUNSELOR) CHOLESTEROL,TOTAL 150 110 - 199 mg/dL [facility] TRIGLYCERIDES 33(L) 40 - 149 mg/dL [facility] HDL CHOLESTEROL 50 41 - 95 mg/dL [facility] CHOL/HDL RATIO 3.00 <4.51 [facility] LDL CHOLESTEROL 93 60 - 130 mg/dL [facility] PATIENT STATUS Fasting [facility] 06/21/2004 12:2 8 PM EQUAL OPPORTUNITY COUNSELOR 06/21/2004 8:10 PM EQUAL OPPORTUNITY COUNSELOR Cecilia Colorado MD CHEMISTRY Final Result [facility] INTERNAL ZIP [address] [address] from Last 3 Months or Most Recently Relevant to Health [place] [id number] [employer] Advance Directives * Full Code (Latest Code Status on File) Date Activated Date Inactivated Comments 10/30/2018 5:37 AM 11/02/2018 3:15 PM * Full Code Date Activated Date Inactivated Comments 09/08/2015 9:48 AM 09/11/2015 3:08 PM * Full Code Date Activated Date Inactivated Comments 09/08/2015 7:00 AM 09/08/2015 9:48 AM Care Teams Shipping Associate Relationship Specialty Start Date End Date Clinic, No Pcp Or . PCP - General 04/15/18 [place] [address] [place] [address] Obstetrics and Gynecology 01/22/13
[2024-05-28 13:43] LABS: Strep A DNA Probe* NOT DETECTED (Not Detectd)
[2024-05-28] MEDS: RACEPINEPHRINE HCL 0.5 ML VIAL.NEB NEB (13:49)
[2024-05-28] MEDS: AMPICILLIN/SULBACTAM 3 GM in 0.9 % SODIUM CHLORIDE Mini-bag 100 ML IVPB (13:59)
[2024-05-28 14:03] LABS: C Reactive Protein* 0.9 mg/dL (0.5-1.0)
[2024-05-28 14:04] LABS: PCR FLU A Negative PCR FLU A (Negative); PCR FLU B Negative PCR FLU B (Negative); PCR RSV Negative PCR RSV (Negative); SARS PCR* Negative SARS-CoV-2 (Negative)
[2024-05-28 14:30] LABS: Erythrocyte SedimentationRate* 11 mm/hr (2-20)
== END 2024-05-28 17:00 | disposition home or self-care (01) ==
PROVIDERS: Emergency Provider Student in an Organized Health Care Education/Training Program; PCP Physician Assistant Medical
DX: J38.6 Stenosis of larynx (principal)
CPT/HCPCS: 36415; 70491; 80048; 82803; 83605; 85025; 85651; 86140; 87040; 87631; 87635; 87651; 94640; 99283; 99291; J0295; Q9967

== ENCOUNTER 2024-06-10 14:34 | Outpatient (CLI) | payer OTHER, SELFPAY | END 2024-06-10 14:35 | disposition home or self-care (01) | PROVIDERS: PCP Physician Assistant Medical; Visit Provider Physician Assistant Medical | DX: D64.9 Anemia, unspecified (principal); J38.6 Stenosis of larynx; R05.9 Cough, unspecified; Z11.1 Encounter for screening for respiratory tuberculosis | CPT/HCPCS: 82607; 82746; 83540; 83550; 86140; 86480; 86644; 86645 ==